=== PATIENT | female | born 1955 | race Caucasian/White ===

== ENCOUNTER → 2017-06-06 | Day surgery (SDC) | payer BC, OTHER ==
[~2017-06-06] VITALS: Ht 162.6 cm; Wt 104.5 kg
[~2017-06-06] MED LIST: ATEN50TA PO; CHLORHEXIDINE GLUCONATE 2 % 1 PACK (2 CLOTHS) TOPICAL PRN; CLINDAMYCIN 600 MG/NS PREMIX 50 ML IV SCH; CYCL10TA PO; DEXAMETHASONE SOD PHOS 4 MG/ML VIAL IV ONE; FAMOTIDINE 20 MG/2 ML VIAL ONE; GABA400C5 PO; HYDR-3580 PO; HYDR25TA5 PO; LACTATED RINGER'S 1000 ML IV PRN; LIDOCAINE HCL 1% PF 5 ML SYRINGE OTHER ONE; LOSA50TA PO; METF500T PO; METOPROLOL TARTRATE 25 MG TAB PO PRN; MIDAZOLAM HCL 2 MG/2 ML VIAL ONE; ONDANSETRON HCL 4 MG/2 ML VIAL IV PUSH ONE; PANT20TA2 PO; POVIDONE IODINE 5% (ANTISEPSIS KIT) 4 APPLICATIONS EACH NARE PRN; PRAV20TA2 PO; PROPOFOL 200 MG/20 ML AMP IV ONE; SODIUM CHLORID 0.9% 500 ML IV PRN; SUCCINYLCHOLINE CHLORIDE 100 MG/5 ML SYRINGE IV PUSH ONE
[2017-06-06 07:56] VITALS: PULSE 96
[2017-06-06 08:15] VITALS: PULSE 91; TEMP 98
[2017-06-06 08:50] VITALS: BP 140/85; PULSE 81; RESP 14; O2SAT 97
--- NOTE | 2017-06-06 17:23 | EKG ---
Date Performed: 06/06/2017 Time Performed: 06:50:33 PTAGE: 62 years EKG: Sinus rhythm NORMAL ECG NO PREVIOUS TRACING DOCTOR: Emily Luz Interpretating Date/Time 06/06/2017 17:20:37
--- NOTE | 2017-06-06 21:13 | MP ---
cc: MARIANNE SOUSA MD DATE OF SURGERY 06/06/[address] Marilee Sousa PREOPERATIVE DIAGNOSIS Lesion of left hypopharynx. POSTOPERATIVE DIAGNOSIS Lesion of left hypopharynx OPERATION PERFORMED Direct laryngoscopy with biopsies. INDICATIONS Documented in history of present illness. PROCEDURE IN DETAIL The patient was taken to OR #2 and placed in the supine position. following induction of general anesthesia and intubation, A shoulder roll, a Abelino head drape were put in place. A dental guard was placed, then using a ___ laryngoscope hypopharynx and larynx were brought into view. A suspicious area of the vallecula was biopsied. Palpation of the hypopharynx revealed the hard mass in the left tonsil and this site was also biopsied per the laryngoscope. The scope was then removed and the procedure was terminated. The patient was reversed from anesthesia and taken to recovery in good condition. No complications. Blood loss was 10 mL. Marianne Sousa MD [facility] [place]/ /7:48 AM /9:05 PM
== END | disposition home or self-care (01) ==
LOC: PHSDC 06:19
PROVIDERS: ATTEND Otolaryngology
DX: C09.9 Malignant neoplasm of tonsil, unspecified (principal); K13.79 Other lesions of oral mucosa; I10 Essential (primary) hypertension
CPT/HCPCS: 00320; 31535; 88305; 88342; 93005; J2250; J3010; J7120; 88304; 88341; J0330; J1100; J2405